=== PATIENT | male | born 1980 | race Caucasian/White ===

== ENCOUNTER 2017-04-13 20:08 | Emergency (ER) | payer SELFPAY ==
[~2017-04-13] VITALS: Ht 154.9 cm; Wt 68.0 kg
--- NOTE | 2017-04-13 20:18 | NUR ---
RENE GIL AT BEDSIDE FOR EVAL.
--- NOTE | 2017-04-13 20:27 | NUR ---
RADIOLOGY AT BEDSIDE FOR CHEST XRAY.
[2017-04-13] MEDS ORDERED: IBUPROFEN 600 MG TABLET PO ONE ×2 (21:00→21:14)
--- NOTE | 2017-04-13 21:22 | NUR ---
Patient discharged to home in stable condition. Written and verbal after care instructions given. Patient verbalizes understanding of instruction.
[2017-04-13 21:23] VITALS: BP 160/110
== END 2017-04-13 21:25 | disposition home or self-care (01) ==
LOC: ER 20:11
DX: R07.89 Other chest pain (principal); R03.0 Elevated blood-pressure reading, without diagnosis of hypertension
CPT/HCPCS: 71010; 99283; A4606; Z7610

== ENCOUNTER 2017-04-14 20:39 | Emergency (ER) | payer BC ==
[~2017-04-14] VITALS: Ht 165.1 cm; Wt 70.3 kg
[2017-04-14] MEDS ORDERED: ASPIRIN 81 MG TAB.CHEW ONE (21:22)
--- NOTE | 2017-04-14 21:26 | NUR ---
pt ambulatory w/ steady gait, c/o midsternal cp x 1 wk, seen yesterday for cp. AOx4 w/ resp even & unlabored, c/o sob w/ chest tightness, hypertensive w/ moderate discomfort noted. On continuous pulse-ox w/ cardiac monitoring. LOUISE Mcadams at bedside for eval.
[2017-04-14] MEDS ORDERED: ASPIRIN 81 MG TAB.CHEW PO ONE (21:30)
--- NOTE | 2017-04-14 21:30 | NUR ---
CXR at bedside.
[2017-04-14 21:33] LABS: BASOPHILS # (AUTO) 0.1 /CMM (0.0-0.2); BASOPHILS % (AUTO) 0.8 % (0.0-2.0); EOSINOPHILS # (AUTO) 0.6 /CMM (0.0-0.7); EOSINOPHILS % (AUTO) 5.7 % (0.0-6.0); HEMATOCRIT 47 % (39-51); HEMOGLOBIN 16.2 g/dL (13.5-17.5); LYMPHOCYTES # (AUTO) 3.4 /CMM (0.8-4.8); LYMPHOCYTES % (AUTO) 34.1 % (20.0-44.0); MEAN CORPUSCULAR HEMOGLOBIN 32 PG (26.0-33.0); MEAN CORPUSCULAR HGB CONC 34 g/dl (31.0-36.0); MEAN CORPUSCULAR VOLUME 93 fL (80-96); MONOCYTES % (AUTO) 9.7 % (2.0-12.0); NEUTROPHILS % (AUTO) 49.7 % (43.0-81.0); PLATELET COUNT (AUTO) 186 /CMM (150-450); RDW COEFFICIENT OF VARIATION 11.1 (11.5-15.0); RED BLOOD CELL COUNT(AUTO) 5.08 MIL/uL (4.5-6.0); WHITE BLOOD COUNT (AUTO) 10.1 K/uL (4.3-11.0)
[2017-04-14 21:43] LABS: CALCIUM, SERUM 8.7 mg/dL (8.5-10.1); CREATININE 1.2 mg/dL (0.6-1.3); POTASSIUM 4.3 mmol/L (3.5-5.1)
[2017-04-14 21:45] LABS: INR 0.95 (0.87-1.13); PROTHROMBIN TIME 9.9 SECS (9.5-12.7)
[2017-04-14] MEDS ORDERED: METOPROLOL TARTRATE 25 MG TABLET PO ONE (22:00)
[2017-04-14] MEDS ORDERED: NITROGLYCERIN 0.4 MG/TAB BOTTLE SL ONE (22:00)
[2017-04-14] MEDS ORDERED: LABETALOL 20 MG/4 ML VIAL IV ONE (22:00)
[2017-04-14 22:05] LABS: TROPONIN I 10.905 ng/mL (0.00-0.056)
--- NOTE | 2017-04-14 22:06 | NUR ---
pt medicated as ordered for continued midsternal CP. On continuous pulse-ox w/ cardiac monitoring.
[2017-04-14] MEDS ORDERED: NITROGLYCERIN 0.4 MG/TAB BOTTLE ONE (22:07)
[2017-04-14] MEDS ORDERED: LABETALOL 20 MG/4 ML VIAL ONE (22:07)
--- NOTE | 2017-04-14 22:14 | NUR ---
pt report continues to have midsternal cp, partially relieved w/ medication. On continuous monitoring.
--- NOTE | 2017-04-14 22:24 | NUR ---
[facility] CALLED. INFORMATION FAXED.
--- NOTE | 2017-04-14 22:34 | NUR ---
pt report having ARCHIBALD s/p NTG given, requesting for tylenol for ARCHIBALD, denies any cp at this time. LOUISE Mcadams notified. Per verbal, LOUISE Mcadams tylenol 1000mg PO given as ordered.
[2017-04-14] MEDS ORDERED: ACETAMINOPHEN ES 500 MG TABLET ONE (22:37)
[2017-04-14] MEDS ORDERED: IOHEXOL-350 100 ML VIAL IV ONE (22:44)
[2017-04-14] MEDS ORDERED: IV NS 0.9% 250 ML IV ONE (22:44)
--- NOTE | 2017-04-14 22:47 | NUR ---
pt sent to CT.
[2017-04-14] MEDS ORDERED: ACETAMINOPHEN 325 MG TABLET PO ONE ×2 (23:00)
[2017-04-14 23:10] VITALS: BP 141/91
--- NOTE | 2017-04-14 23:10 | NUR ---
pt back fr CT w/ resp even & unlabored, denies any sob, report cp partially relieved at this time. 2nd IVHL started, patent & intact w/ site benign. On continuous monitoring w/ family at bedside. Awaiting transfer [facility].
--- NOTE | 2017-04-14 23:14 | NUR ---
all pt clothing and belongings removed and given to pt family.
--- NOTE | 2017-04-14 23:26 | NUR ---
Report given to DIMITRI Agosto for transport via [facility] ambulance to [facility]. pt resp even & unlabored, denies any sob w/ no acute distress noted.
== END 2017-04-14 23:28 | disposition short-term general hospital (02) ==
LOC: ER 20:43
DX: I21.4 Non-ST elevation (NSTEMI) myocardial infarction (principal); R03.0 Elevated blood-pressure reading, without diagnosis of hypertension; R06.00 Dyspnea, unspecified; F10.129 Alcohol abuse with intoxication, unspecified; R07.89 Other chest pain; R20.0 Anesthesia of skin; R51 Headache
CPT/HCPCS: 36415; 70450; 71010; 71275; 80048; 83880; 84484; 85025; 85730; 93005; 96374; 99285; A4606; J3490; J7050; Q9967; Z7610